=== PATIENT | male | born 1930 | race Caucasian/White ===

== ENCOUNTER 2018-09-12 10:06 | Outpatient (CLI) | payer MEDICARE, OTHER ==
[2018-09-12 11:42] LABS: INTERNATIONAL NORMALIZED RATIO 1.09 (0.93-1.1); PROTHROMBIN TIME 11.4 Seconds (9.6-11.5)
[2018-09-12 11:50] LABS: MICROSCOPIC AUTO
[2018-09-12 11:53] LABS: CULTURE INDICATED? YES
[2018-09-12] MEDS ORDERED: APIX5TAB PO (11:53)
[2018-09-12] MEDS ORDERED: AMIO200T42 PO (11:53)
[2018-09-12] MEDS ORDERED: INDA1.25 PO (11:53)
[2018-09-12 12:03] LABS: BASOPHILS # (AUTO) 0.02 x10^3/uL (0-0.1); BASOPHILS % (AUTO) 0 % (0-1); EOSINOPHILS % (AUTO) 2 % (1-7); LYMPHOCYTES # (AUTO) 1.15 x10^3/uL (1-3.4); LYMPHOCYTES % (AUTO) 20 % (22-44); MD NO; MEAN CORPUSCULAR HEMOGLOBIN 28.7 pg (27.5-34.5); MEAN CORPUSCULAR HGB CONC 32.6 g/dL (33.2-36.2); MEAN CORPUSCULAR VOLUME 88.2 fL (81-97); MEAN PLATELET VOLUME 8.9 fL (7.4-10.4); MONOCYTES # (AUTO) 0.43 x10^3/uL (0.2-0.8); MONOCYTES % (AUTO) 7 % (2-9); NEUTROPHILS # (AUTO) 4.14 x10^3/uL (1.8-6.8); NEUTROPHILS % (AUTO) 71 % (42-75); PLATELET COUNT 232 x10^3/uL (130-400); RED BLOOD COUNT 4.87 x10^6/uL (4.38-5.82); RED CELL DISTRIBUTION WIDTH 15.5 % (9.4-14.8)
[2018-09-12 13:35] LABS: CHLORIDE 108 mmol/L (98-107)
[2018-09-12 13:45] LABS: ALANINE AMINOTRANSFERASE 20 U/L (12-78); ALBUMIN 3.4 g/dL (3.4-5.0); ALKALINE PHOSPHATASE 64 U/L (45-117); ANION GAP 7 mmol/L (5-15); BILIRUBIN,TOTAL 0.6 mg/dL (0.2-1.0); CALCIUM 8.8 mg/dL (8.5-10.1); CREATININE 1.13 mg/dL (0.7-1.3); TOTAL PROTEIN 7.5 g/dL (6.4-8.2)
[2018-10-17] MEDS ORDERED: INDA2.5T PO (14:08)
[2018-10-17] MEDS ORDERED: LEVO50TA5 PO (14:08)
[2018-10-17] MEDS ORDERED: POTA10TA31 PO (14:08)
[2018-10-24] MEDS ORDERED: HYDR-3237 PO (08:50)
[2018-10-24] MEDS ORDERED: TIZA2TAB2 PO (08:50)
== END 2018-09-12 23:59 | disposition home or self-care (01) ==
LOC: STAR 10:06
PROVIDERS: ATTEND Neurological Surgery
DX: Z01.818 Encounter for other preprocedural examination (principal); M48.061 Spinal stenosis, lumbar region without neurogenic claudication; R94.31 Abnormal electrocardiogram [ECG] [EKG]
CPT/HCPCS: 36415; 71046; 80053; 81001; 85025; 85610; 85730; 87086; 93005

== ENCOUNTER 2019-12-14 14:58 | Emergency (ER) | payer MEDICARE, OTHER ==
[~2019-12-14 14:58] MED LIST: AMIO200T42 PO; APIX5TAB PO; HYDR-3237 PO; INDA1.25 PO; INDA2.5T PO; LEVO50TA5 PO; POTA10TA31 PO; TIZA2TAB4 PO
[2019-12-14] MEDS ORDERED: DIPH,PERTUSS(ACELL),TET VAC/PF 0.5 ML IM-VACC ONE ×2 (16:00→16:37)
[2019-12-14] MEDS ORDERED: PLEASE ENTER HEIGHT AND WEIGHT MC SCH ×2 (16:00→18:30)
[2019-12-14] MEDS ORDERED: L.E.T SOLUTION TP ONE ×2 (16:00→16:54)
--- NOTE | 2019-12-14 16:06 | NUR ---
ASSUMED CARE OF PATIENT. PATIENT REPORTS A MGLF AT THE POST OFFICE THIS AFTERNOON. PT HIT HEAD AND HAS A LEFT EYEBROW LAC. NO LOC. PT IS ON ELIQUIS. AT BEDSIDE. CALL LIGHT IN PLACE. NO ACUTE DISTRESS NOTED. CALL LIGHT IN PLACE. WILL CONTINUE TO MONITOR.
--- NOTE | 2019-12-14 16:58 | NUR ---
PT RESTING IN ROOM. AT BEDSIDE. NO ACUTE DISTRESS NOTED. CALL LIGHT IN PLACE. WILL CONTINUE TO MONITOR.
--- NOTE | 2019-12-14 18:05 | NUR ---
REPORT GIVEN TO GAETANO CHAKRABORTY FOR BREAK
[2019-12-14] MEDS ORDERED: LIDOCAINE 1%-EPI 1:100K, 20ML SQ ONE (18:30)
--- NOTE | 2019-12-14 18:40 | NUR ---
TOM CHOE IN ROOM DOING SUTURES
[2019-12-14] MEDS ORDERED: NEOSPORIN OINT. PKT 1 PACKET ONE (18:52)
[2019-12-14 18:54] VITALS: BP 128/74
--- NOTE | 2019-12-14 19:00 | NUR ---
REPORT GIVEN TO GAETANO RAMIREZ
--- NOTE | 2019-12-14 19:28 | NUR ---
Patient/Caregiver given discharge instructions and they have confirmed that they understand the instructions. Patient ambulatory with steady gait.
== END 2019-12-14 19:30 | disposition home or self-care (01) ==
LOC: ED 18:30
DX: S01.112A Laceration without foreign body of left eyelid and periocular area, initial encounter (principal); S09.90XA Unspecified injury of head, initial encounter; S61.502A Unspecified open wound of left wrist, initial encounter; Z87.891 Personal history of nicotine dependence; W18.39XA Other fall on same level, initial encounter; Y93.89 Activity, other specified; Y92.098 Other place in other non-institutional residence as the place of occurrence of the external cause; Y99.8 Other external cause status
CPT/HCPCS: 12052; 70450; 72125; 90471; 90715; 99285

== ENCOUNTER 2020-08-04 09:04 | Emergency (ER) | payer MEDICARE, OTHER ==
[~2020-08-04] VITALS: Ht 182.9 cm; Wt 80.0 kg
[~2020-08-04 09:04] MED LIST changes: +TIZA-106 PO; -TIZA2TAB4 PO
[2020-08-04 10:08] LABS: BASOPHILS % (AUTO) 0 % (0-1); EOSINOPHILS % (AUTO) 0 % (1-7); LYMPHOCYTES % (AUTO) 8 % (22-44); MEAN CORPUSCULAR HEMOGLOBIN 28.6 pg (27.5-34.5); MEAN CORPUSCULAR HGB CONC 33.9 g/dL (33.2-36.2); MEAN PLATELET VOLUME 8.5 fL (7.4-10.4); MONOCYTES % (AUTO) 9 % (2-9); NEUTROPHILS % (AUTO) 83 % (42-75); PLATELET COUNT 193 x10^3/uL (130-400); RED BLOOD COUNT 4.06 x10^6/uL (4.38-5.82); RED CELL DISTRIBUTION WIDTH 15.1 % (9.4-14.8)
[2020-08-04 10:17] LABS: ANION GAP 7 mmol/L (5-15); CALCIUM 8.4 mg/dL (8.5-10.1); CHLORIDE 108 mmol/L (98-107)
[2020-08-04 10:18] LABS: CREATININE 1.16 mg/dL (0.7-1.3)
--- NOTE | 2020-08-04 11:02 | NUR ---
Aneta RN note: Pt found standing in room attempting to open the door. Pt unclothed except for adult brief. Pt A&O to self only, unsteady gait. Pt assisted back to bed and into yellow gown. Pt denies pain. PT positioned for comfort in bed with warm blanket. Yellow non-skid socks and falls risk band applied. Continuous heart, oxygen and BP monitors applied, all safety measures observed.
--- NOTE | 2020-08-04 11:10 | NUR ---
Aneta RN note: Advised primary RN of events. Notified charge nurse of need for sitter. EMT at bedside for pt safety.
[2020-08-04] MEDS ORDERED: POTASSIUM CHLORIDE 20 MEQ TAB.ER.PRT PO ONE (11:30)
[2020-08-04] MEDS ORDERED: POTASSIUM CHLORIDE 20 MEQ TAB.ER.PRT ONE (11:49)
--- NOTE | 2020-08-04 12:07 | NUR ---
REPORT GIVEN TO KIRAN, THE [facility] DIRECTOR.
[2020-08-04 12:21] VITALS: BP 134/74
== END 2020-08-04 14:01 | disposition home or self-care (01) ==
LOC: ED 11:12
DX: S20.219A Contusion of unspecified front wall of thorax, initial encounter (principal); S09.90XA Unspecified injury of head, initial encounter; S80.212A Abrasion, left knee, initial encounter; S80.211A Abrasion, right knee, initial encounter; E87.6 Hypokalemia; Z87.891 Personal history of nicotine dependence; W18.30XA Fall on same level, unspecified, initial encounter; Y93.89 Activity, other specified; Y92.009 Unspecified place in unspecified non-institutional (private) residence as the place of occurrence of the external cause; Y99.8 Other external cause status
CPT/HCPCS: 36415; 70450; 71045; 80048; 82040; 85025; 93005; 99285